=== PATIENT | male | born 1935 | race Caucasian/White ===

== ENCOUNTER 2021-10-09 11:27 | Observation (INO) ==
[2021-09-28 18:28] LABS: Basophils # (Auto) 0.09 K/mcL (0.00-0.30); Basophils % (Auto) 1.1 % (0.0-2.0); Eosinophils # (Auto) 0.15 K/mcL (0.00-0.70); Eosinophils % (Auto) 1.8 % (0.0-7.0); Hematocrit 44.6 % (40.1-51.0); Hemoglobin 14.6 g/dL (13.7-17.5); Lymphocytes % (Auto) 14.4 % (15.5-49.0); Mean Cell Volume 98.7 fL (80.0-100.0); Mean Corpuscular HGB Conc 32.7 g/dL (31.0-36.0); Mean Platelet Volume 9.7 fL (7.4-10.4); Monocytes # (Auto) 0.66 K/mcL (0.10-0.90); Monocytes % (Auto) 7.9 % (1.0-12.0); Neutrophils % (Auto) 74.4 % (38.0-78.0); Platelet Count 309 K/mcL (140-440); RBC 4.52 M/mcL (4.63-6.08); Red Cell Distribution Width 13.2 % (11.5-14.5); WBC 8.4 K/mcL (4.5-11.0)
[2021-09-28 18:38] LABS: Appearance,Urine CLEAR (Clear); Bilirubin,Urine Negative (Negative); Color,Urine YELLOW; Culture Indicated,Urine No; Glucose,Urine (UA) Negative (Negative); Ketones,Urine Negative (Negative); Leukocyte Esterase,Urine Negative /uL (Negative); Nitrate,Urine Negative (Negative); Protein,Urine Negative (Negative); Specific Gravity,Urine 1.017 (1.000-1.035); Urine Blood Negative (Negative); Urobilinogen,Urine Negative
[2021-09-28 19:42] LABS: Blood Urea Nitrogen 25 mg/dL (8-23); Calcium 9.2 mg/dL (8.6-10.4); Carbon Dioxide 29 mmol/L (22-30); Chloride 100 mmol/L (96-108); Glomerular Filtration Rate 78; Glucose 116 mg/dL (70-105)
--- NOTE | 2021-10-06 10:27 | EKG ---
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
[~2021-10-09 11:27] MED LIST: 0.9 % SODIUM CHLORIDE 9 ML, KETOROLAC 30 MG, ROPIVACAINE HCL/PF 49.5 ML, EPINEPHrine 0.... IJ SCH; ACETAMINOPHEN 500 MG TABLET PO SCH; CELECOXIB 200 MG CAPSULE PO SCH; PREGABALIN 75 MG CAPSULE PO SCH; ceFAZolin 2 GM in DEXTROSE 5% IN WATER 50 ML IV SCH; oxyCODONE 10 MG TAB.ER.12H PO SCH
[2021-10-09] MEDS ORDERED: NICOTINE 14 MG PATCH TOPICAL ONE (12:18)
--- NOTE | 2021-10-09 13:47 | Discharge Plan ---
Discharge Instructions - LAUREN Patient Instructions Total Hip Protocol: Follow activity instructions as provided by Physical Therapy. Additional Dressing Instructions: Leave Zip line closure patch intact until followup Discharge Plan Patient/Caregiver Discharge Instructions Activity: ambulate only with your walker and as per physical therapy Diet: Regular Diet Prescriptions: New hydrocodone-acetaminophen 10-325 mg tablet 1 - 2 tab PO Q4H PRN (Reason: pain) Qty: 75 0RF aspirin [Ecotrin Low Strength] 81 mg tablet,delayed release (DR/EC) 81 mg PO BID Qty: 60 0RF docusate sodium 100 mg capsule 100 mg PO BID Qty: 60 0RF No Action acetaminophen [Tylenol Extra Strength] 500 mg tablet 1,000 mg PO Q4H PRN (Reason: Pain) Label Comments: 2 in AM and 2 in PM. furosemide 40 mg tablet 20 mg PO QDAY Rx Instructions: 1/2 tab ibuprofen 200 mg tablet See Rx Instructions PO BID Rx Instructions: 2 in AM and 2 in PM. PO twice a day; finasteride 5 mg Tablet 5 mg PO QDAY quetiapine [Seroquel] 50 mg Tablet 50 mg PO QHS aspirin 81 mg Tablet,Delayed Release (Dr/Ec) 81 mg PO QDAY omega 4-grv-qgo-fish oil [Fish Oil] 1,000 mg (120 mg-180 mg) Capsule 1 cap PO BID Rx Instructions: 1000 mg oral capsule Probiotic 3 billion cell Capsule 3,000 mmu cells PO QDAY Rx Instructions: administer with a meal Calcium Magnesium 500 mg calcium -250 mg Tablet 1 tab PO BID tamsulosin 0.4 mg Capsule 0.4 mg PO QDAY Other Ambulatory Orders: Physical Therapy DC - LAUREN (Routine) Location: None Selected Ordered By: Jimenez Abad Toilet Riser Discharge Order (ONCE) Location: None Selected Ordered By: Jimenez Abad Walker (ONCE) Location: None Selected Ordered By: Jimenez Abad Follow Up Plan Follow up with: Pedrito Galloway MD [Physician] - 10/23/21 10:10 am Patient Disposition: Home, Self-Care Prognosis: Good Rehab Potential: Good I certify that the patient requires SNF services: No Overall status at discharge: patient is progressing back to baseline Discharge Orders: Discharge Order (Routine); Ordered 10/10/21 Ordered By: Jimenez Abad
[2021-10-09] MEDS ORDERED: PROPOFOL 200 MG/20 ML VIAL IV ONE (13:56)
[2021-10-09] MEDS ORDERED: KETAMINE 50 MG/ML Syringe (ANEST) IV ONE (13:56)
[2021-10-09] MEDS ORDERED: PHENYLephrine 1 MG/10 ML SYRINGE (ANEST) ONE (13:56)
[2021-10-09] MEDS ORDERED: ePHEDrine 50 MG/5 ML SYRINGE (ANEST) IV ONE (13:56)
[2021-10-09] MEDS ORDERED: LIDOCAINE HCL/PF 100 MG/5 ML SYRINGE IV ONE (13:56)
[2021-10-09] MEDS ORDERED: fentaNYL 100 MCG/2 ML VIAL IV ONE (13:56)
[2021-10-09] MEDS ORDERED: ROCURONIUM 10 MG/ML ML IV ONE (13:56)
[2021-10-09] MEDS ORDERED: ROPIVACAINE HCL/PF 20 ML VIAL IJ ONE (13:56)
[2021-10-09] MEDS ORDERED: ONDANSETRON 4 MG/2 ML VIAL ONE (13:56)
[2021-10-09] MEDS ORDERED: GLYCOPYRROLATE 0.2 MG/ML VIAL IV ONE (13:56)
[2021-10-09] MEDS ORDERED: MAGNESIUM SULFATE 2 GM/50 ML BAG IV ONE (13:56)
[2021-10-09] MEDS ORDERED: TRANEXAMIC ACID 1,000 MG/10 ML VIAL ONE (13:56)
[2021-10-09] MEDS ORDERED: DEXAMETHASONE 10 MG/ML VIAL ONE (13:56)
--- NOTE | 2021-10-09 15:19 | Brief Operative Note ---
Brief Operative Note Date of procedure: 10/09/21 Pre-op diagnosis: right hip djd Post-op diagnosis: same Procedure: right milind Grafts/Implants: Yes Anesthesia: GETA Complications: none Surgeon: Pedrito Galloway Surveillance Dual Rate Officer: Jimenez Abad Estimated blood loss (cc): 59 Specimens Removed/Pathology: none sent Condition: stable Disposition: PACU
[2021-10-09] MEDS ORDERED: ONDANSETRON 4 MG/2 ML VIAL IV PRN ×2 (15:21)
[2021-10-09] MEDS ORDERED: HYDROcodone/APAP 10/325MG TABLET PO PRN (15:21)
[2021-10-09] MEDS ORDERED: MAGNESIUM HYDROXIDE 30 ML ORAL.SUSP PO PRN (15:21)
[2021-10-09] MEDS ORDERED: HYDROmorphone 1 MG/ML SYRINGE IV PRN (15:21)
[2021-10-09] MEDS ORDERED: TEMAZEPAM 15 MG CAPSULE PO PRN (15:21)
[2021-10-09] MEDS ORDERED: ACETAMINOPHEN 325 MG TABLET PO PRN (15:21)
[2021-10-09] MEDS ORDERED: POLYETHYLENE GLYCOL 3350 17 GM PACKET PO PRN (15:21)
[2021-10-09] MEDS ORDERED: TRANEXAMIC ACID 1,000 MG/10 ML VIAL IV ONE (15:21)
[2021-10-09] MEDS ORDERED: BISACODYL 10 MG SUPP.RECT PR PRN (15:21)
[2021-10-09] MEDS ORDERED: FLEETS ADULT ENEMA PR PRN (15:21)
[2021-10-09] MEDS ORDERED: ACETAMINOPHEN 500 MG TABLET PO PRN (15:28)
[2021-10-09] MEDS ORDERED: fentaNYL 100 MCG/2 ML VIAL IV PRN (15:46)
[2021-10-09] MEDS ORDERED: METHOCARBAMOL 1,000 MG/10 ML VIAL IV PRN (15:46)
[2021-10-09] MEDS ORDERED: IPRATROPIUM/ALBUTEROL 3 ML AMPUL.NEB NEB PRN (15:46)
[2021-10-09] MEDS ORDERED: HYDROmorphone 0.5 MG/0.5 ML SYRINGE IV PRN (15:46)
[2021-10-09] MEDS ORDERED: MEPERIDINE 25 MG/ML VIAL IV PRN (15:46)
--- NOTE | 2021-10-09 15:52 | Operative Note ---
DATE OF OPERATION: 10/09/2021 PREOPERATIVE DIAGNOSIS: Right hip degenerative arthritis, severe. POSTOPERATIVE DIAGNOSIS: Right hip degenerative arthritis, severe. PROCEDURE: Right total hip arthroplasty using the [employer] robot. SURGEON: Pedrito Galloway M.D. BANKING SERVICES CLERK: Jimenez Abad PA-C. This provider's expertise and technical skill were required throughout the case. The MARVIN assisted with preoperative coordination, intraoperative retraction, wound closure, and dressing and splint application, as well as postoperative documentation and care coordination. ESTIMATED BLOOD LOSS: About 100 mL. IMPLANTS: Right total hip arthroplasty, which was a Wilder implant., a 7 mm stem with a +5 neck length, 36 mm ceramic ball with a 56 cup with no screws with a hooded liner for a 36 mm ball. COMPLICATIONS: None. DESCRIPTION OF PROCEDURE: The patient was brought to the operating room, put to sleep with general LMA anesthesia. Once asleep, the patient had the right hip sterilely prepped and draped, Ioban being placed over the skin. We placed three pins above the hip in the iliac crest. The three pins were placed and the arrays also placed and registered. A superior approach was performed to the hip. I dissected through the gluteus bertin, which was retracted using a Charnley retractor exposing the greater trochanter. A checkpoint pin was placed and registered. Leg length was measured and offset was measured. Once this was done, I then placed an incision through the capsule, tagging the piriformis obturator internus and the capsule as well. I dislocated the hip and made the neck cut at 40 mm from the center of hip rotation. We subluxed the hip anteriorly after removing the femoral head, identified the borders of the acetabulum and removed the labrum. Once done, we were able to then ream up after registering 30 points in the intraarticular region and 30 points around the rim. We brought in the robot and a single reamer was used. This recreated the depth and the alignment for the implant. The cup was then placed and tapped into place and locked very nicely at 40 degrees of inclination and 25 degrees of anteversion. A hooded liner was then placed and tapped into place as well. We then prepared the femoral side. We broached up to a size 7 stem. We trialed the size 7 and best fit was with a +5 neck length, recreating much of the leg length deficit. This seemed to fit very nicely. We put the final implant in, which was a cementless femoral stem size 7 with a +5 ceramic neck length on a 36 mm ceramic ball. This was tapped into place and reduced, very stable throughout the arc of motion. We irrigated and rechecked offset and leg length, which recreated his anatomy. We irrigated thoroughly, closed the capsule with #1 Ethibond, closed the fascial layer with #1 Stratafix, and skin was closed with Stratafix and adhesive closure. Sterile bandage was applied. RB[facility]:broderick Job ID: [id number] Doc ID: [id number] Pedrito Galloway MD
--- NOTE | 2021-10-09 16:17 | XRay Report ---
INDICATION: Post-op Total Hip TECHNIQUE: AP pelvis. AP and crosstable lateral right hip COMPARISON: Previous examination dated 05/02/2021 FINDINGS: Status post right total hip arthroplasty. Normal anatomic alignment. There is postsurgical and intra-articular gas. No acute pelvic fractures. Patient has undergone prior left total hip arthroplasty. 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
[2021-10-09] MEDS: LACTATED RINGERS 1,000 ML IV SCH (16:56)
[2021-10-09] MEDS: ASPIRIN 81 MG TAB.CHEW CHEWED SCH (21:46)
[2021-10-09] MEDS: ceFAZolin 1 GM VIAL IV SCH (21:46)
[2021-10-09] MEDS: FISH OIL 1,000 MG CAPSULE PO SCH (21:46)
[2021-10-09] MEDS: SENNOSIDES 1 TABLET PO SCH (21:47)
[2021-10-09] MEDS: DOCUSATE SODIUM 100 MG CAPSULE PO SCH (21:47)
[2021-10-09] MEDS: QUEtiapine 25 MG TABLET PO SCH (21:47)
[2021-10-09] MEDS: IBUPROFEN 200 MG TABLET PO SCH (21:47)
[2021-10-09] MEDS: CA CARB CA GLUC GLUCO PO SCH (21:48)
[2021-10-09] MEDS: 0.9 % SODIUM CHLORIDE 10 ML SYRINGE IV SCH (21:49)
[2021-10-10] MEDS: LACTATED RINGERS 1,000 ML IV SCH ×2 (04:12→15:20)
[2021-10-10] MEDS: 0.9 % SODIUM CHLORIDE 10 ML SYRINGE IV SCH ×3 (05:16→20:59)
[2021-10-10] MEDS: ceFAZolin 1 GM VIAL IV SCH (05:16)
--- NOTE | 2021-10-10 07:21 | Orthopedic Progress Note ---
SUBJECTIVE Subjective Patient information: Note initiated : 10/10/21 at 7:20 am Service Date, if different from initiated Date: [] Patient: Mayur Hickey 86 y/o M admitted on for Right Superior Total Hip Arthroplasty [facility]. Chief Complaint: [Pt is stable this morning on post operative day without any significant concerns or complaints. Patients vital signs have remained stable. Patients dressing is dry and is grossly intact from a neurovascular and motor standpoint. Patients 10 point ROS is otherwise negative. ] Constitutional Vitals: Vital Signs Temp Pulse Resp BP Pulse Ox O2 Del Method O2 Flow Rate 97.1 F 81 24 H 143/83 93 3 10/10/21 03:19 10/10/21 03:19 10/10/21 03:19 10/10/21 03:19 10/10/21 03:19 10/10/21 03:19 10/10/21 03:19 Period Temp Pulse Resp BP Sys/Castro Pulse Ox O2 Del Method O2 Flow Rate Last 24 Hr 96.9 F-97.7 F 64-86 14-24 83-156/58-98 88-100 Nasal Cannula- Room Air 0-6 Intake and Output 10/09/21 10/10/21 10/10/21 21:59 05:59 13:59 Intake Total 3450 150 Output Total 1202 575 Balance 2248 -425 Intake & Output: Intake & Output 10/09/21 10/10/21 10/10/21 21:59 05:59 13:59 Intake Total 3450 150 Output Total 1202 575 Balance 2248 -425 Intake: IV 50 Ancef 2 gm In Dextrose 5% in 50 Water 50 ml @ 100 mls/hr IV PREOP OMER Rx#:[id number] Oral 1000 150 IV - Manual Only 2400 Output: Urine Catheter Amount 700 Void Amount 250 575 # of times incontinent of urine 2 Estimated Blood Loss 250 Other: Meal Nourishment/Supplement Nourishment/Supplement name ice cream Urine Appearance Clear Clear Straight Clear Urine Color Pale Bright Yellow Straight Bright Yellow Urine Odor Straight Normal Extremities Exam Extremities exam: Present normal capillary refill, normal inspection, Foot pink and warm and neurovascular intact OBJ DATA Labs CBC & Chem 7: 09/28/21 14:39 09/28/21 14:39 Meds: Medications Acetaminophen (Acetaminophen 325 Mg Tablet) 650 mg PO Q6HP PRN; Protocol PRN Reason: Per Pain Protocol/Fever > 101 Last Admin: 10/10/21 05:15 Dose: 650 mg Hydrocodone Bitart/Acetaminophen (Hydrocodone/Apap 10/325mg Tablet) 1 - 2 tab PO Q4HP PRN; Protocol PRN Reason: Per Pain Protocol Aspirin (Aspirin 81 Mg Tab.Chew) 81 mg CHEWED BID [facility] Last Admin: 10/09/21 21:46 Dose: 81 mg Bisacodyl (Bisacodyl 10 Mg Supp.Rect) [address] Q2-3DAYS PRN PRN Reason: Constipation Docusate Sodium (Docusate Sodium 100 Mg Capsule) 100 mg PO BID [facility] Last Admin: 10/09/21 21:47 Dose: 100 mg Finasteride (Finasteride 5 Mg Tablet) 5 mg PO QDAY [facility] Fish Oil (Fish Oil 1,000 Mg Capsule) 1,000 mg PO BID [facility] Last Admin: 10/09/21 21:46 Dose: 1,000 mg Furosemide (Furosemide 40 Mg Tablet) 20 mg PO QDAY [facility] Hydromorphone HCl (Hydromorphone 1 Mg/Ml Syringe) 0.5 - 2 mg IV Q2HP PRN; Protocol PRN Reason: Per Pain Protocol Lactated Ringer's (Lactated Ringers) 1,000 mls @ 100 mls/hr IV .Q10H [facility] Last Admin: 10/10/21 04:12 Dose: Not Given Ibuprofen (Ibuprofen 200 Mg Tablet) 200 mg PO BID [facility] Last Admin: 10/09/21 21:47 Dose: 200 mg Lactobacillus Rhamnosus (Lactobacillus 1 Capsule) 1 cap PO QDAY [facility] Magnesium Hydroxide (Magnesium Hydroxide 30 Ml Oral.Susp) 30 ml PO BIDP PRN PRN Reason: Constipation Ondansetron HCl (Ondansetron 4 Mg/2 Ml Vial) 4 mg IV Q4HP PRN; Protocol PRN Reason: Nausea And Vomiting Ondansetron HCl (Ondansetron 4 Mg/2 Ml Vial) 4 mg IV Q4HP PRN; Protocol PRN Reason: Nausea And Vomiting Ca Carb-Ca Gluc-Mg (Ox-Mg Gluco) 1 dose PO BID [facility] Last Admin: 10/09/21 21:48 Dose: Not Given Polyethylene Glycol (Polyethylene Glycol 3350 17 Gm Packet) 17 gm PO DAILYP PRN PRN Reason: Constipation Quetiapine Fumarate (Quetiapine 25 Mg Tablet) 50 mg PO QHS [facility] Last Admin: 10/09/21 21:47 Dose: 50 mg Senna (Sennosides 1 Tablet) 2 tab PO [facility] Last Admin: 10/09/21 21:47 Dose: 2 tab Sodium Biphosphate/Sodium Phosphate (Fleets Adult Enema) [address] Q3-4DAYS PRN PRN Reason: Constipation Sodium Chloride (0.9 % Sodium Chloride 10 Ml Syringe) 10 ml IV Q8 [facility] Last Admin: 10/10/21 05:16 Dose: 10 ml Tamsulosin HCl (Tamsulosin 0.4 Mg Capsule) 0.4 mg PO QDAY [facility] Temazepam (Temazepam 15 Mg Capsule) 15 mg PO HSP PRN PRN Reason: Insomnia A/P Narrative A/P Narrative: The patient has been educated regarding dressing care, , restrictions, and follow up appointments. The patient has had all necessary DME prescribed. The patient has remained relatively stable during their hospital course. Time Spent With Patient Time: Total time spent is greater than 50% in coordination of care (as documented) at patient's floor/unit and/or counseling patient: Total time spent with greater than 50% in coordination of care (as documented) at patient's floor/unit and/or counseling patient:: less than 15 minutes Critical Care Time: No
[2021-10-10] MEDS: DOCUSATE SODIUM 100 MG CAPSULE PO SCH ×2 (08:10→20:58)
[2021-10-10] MEDS: FUROSEMIDE 40 MG TABLET PO SCH (08:10)
[2021-10-10] MEDS: ASPIRIN 81 MG TAB.CHEW CHEWED SCH ×2 (08:10→20:58)
[2021-10-10] MEDS: TAMSULOSIN 0.4 MG CAPSULE PO SCH (08:11)
[2021-10-10] MEDS: FINASTERIDE 5 MG TABLET PO SCH (08:11)
[2021-10-10] MEDS: IBUPROFEN 200 MG TABLET PO SCH ×2 (08:11→20:58)
[2021-10-10] MEDS: FISH OIL 1,000 MG CAPSULE PO SCH ×2 (08:11→20:58)
[2021-10-10] MEDS: LACTOBACILLUS 1 CAPSULE PO SCH (08:11)
[2021-10-10] MEDS: CA CARB CA GLUC GLUCO PO SCH ×2 (08:15→21:00)
[2021-10-10] MEDS: ACETAMINOPHEN 650 MG/65 ML BAG IV PRN ×2 (14:51→20:51)
[2021-10-10] MEDS: traMADol 50 MG TABLET PO PRN (19:07)
[2021-10-10] MEDS: QUEtiapine 25 MG TABLET PO SCH (20:58)
[2021-10-10] MEDS: SENNOSIDES 1 TABLET PO SCH (20:58)
[2021-10-11] MEDS: ACETAMINOPHEN 650 MG/65 ML BAG IV PRN ×2 (03:18→14:53)
[2021-10-11] MEDS: traMADol 50 MG TABLET PO PRN ×2 (03:19→16:28)
[2021-10-11] MEDS: 0.9 % SODIUM CHLORIDE 10 ML SYRINGE IV SCH ×2 (05:01→14:08)
[2021-10-11] MEDS: IBUPROFEN 200 MG TABLET PO SCH (07:50)
[2021-10-11] MEDS: LACTOBACILLUS 1 CAPSULE PO SCH (07:50)
[2021-10-11] MEDS: FISH OIL 1,000 MG CAPSULE PO SCH (07:51)
[2021-10-11] MEDS: DOCUSATE SODIUM 100 MG CAPSULE PO SCH (07:51)
[2021-10-11] MEDS: TAMSULOSIN 0.4 MG CAPSULE PO SCH (07:51)
[2021-10-11] MEDS: FINASTERIDE 5 MG TABLET PO SCH (07:51)
[2021-10-11] MEDS: ASPIRIN 81 MG TAB.CHEW CHEWED SCH (07:52)
[2021-10-11] MEDS: FUROSEMIDE 40 MG TABLET PO SCH (07:52)
[2021-10-11] MEDS: CA CARB CA GLUC GLUCO PO SCH (07:54)
== END 2021-10-11 16:45 ==
LOC: SUR 11:27 → MEDSUR 11:27
PROVIDERS: ADMIT Orthopaedic Surgery; ATTEND Orthopaedic Surgery